=== PATIENT | female | born 1995 | race Caucasian/White ===

== ENCOUNTER 2023-06-20 13:29 | Emergency (ER) | payer OTHER ==
[~2023-06-20] VITALS: Ht 170.2 cm; Wt 59.0 kg
[2023-06-20 14:01] VITALS: BP 120/64; PULSE 68; RESP 16; TEMP 98.3; O2SAT 99
== END 2023-06-20 16:24 | disposition home or self-care (01) ==
LOC: ER 14:14
DX: M54.50 Low back pain, unspecified (principal); R68.84 Jaw pain; V49.49XA Driver injured in collision with other motor vehicles in traffic accident, initial encounter; Y93.89 Activity, other specified; Y92.89 Other specified places as the place of occurrence of the external cause; Y99.8 Other external cause status
CPT/HCPCS: 99281